=== PATIENT | male | born 1985 ===

== ENCOUNTER 2018-03-30 05:23 | Emergency (ER) | payer MEDICAID, OTHER ==
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
[2018-03-30 09:59] VITALS: RESP 18
[2018-03-30 10:00] VITALS: BP 141/70; PULSE 76; TEMP 98; O2SAT 100
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
== END 2018-03-30 09:59 | disposition home or self-care (01) ==
LOC: H.ER 05:23
DX: S09.90XA Unspecified injury of head, initial encounter (principal); M25.531 Pain in right wrist; V43.52XA Car driver injured in collision with other type car in traffic accident, initial encounter; Y92.410 Unspecified street and highway as the place of occurrence of the external cause